=== PATIENT | female | born 1970 | race Caucasian/White ===

== ENCOUNTER 2021-02-08 08:55 | Emergency (ER) | payer BC, OTHER ==
[2021-02-08 09:18] VITALS: BMI 44.9
[2021-02-08] MEDS ORDERED: CASIRIVIMAB/IMDEVIMAB 10 ML in SODIUM CHLORIDE 100 ML IVPB ONE (09:55)
[2021-02-08 11:34] VITALS: PULSE 68
[2021-02-08 13:56] VITALS: BP 108/84; TEMP 98.2
== END 2021-02-08 13:56 | disposition home or self-care (01) ==
LOC: JCOVINFU 08:55
DX: U07.1 COVID-19 (principal)
CPT/HCPCS: 99284-25; Q0240